=== PATIENT | male | born 1990 | race Two or more races ===

== ENCOUNTER 2019-12-30 15:01 | Emergency (ER) | payer MEDICAID ==
[~2019-12-30] VITALS: Ht 175.3 cm; Wt 90.7 kg
[2019-12-30 17:04] VITALS: BP 140/87
== END 2019-12-30 17:36 | disposition left against medical advice (07) ==
LOC: ER 15:01
DX: M25.571 Pain in right ankle and joints of right foot (principal); Z53.21 Procedure and treatment not carried out due to patient leaving prior to being seen by health care provider